=== PATIENT | female | born 1945 | race Caucasian/White ===

== ENCOUNTER 2017-07-11 01:46 | Day surgery (SDC) | payer MEDICARE, OTHER ==
[~2017-07-11 01:46] MED LIST: FEXO180 PO; FLUO20 PO; LEVSOD88 PO; PANT20 PO; PANT40 PO; ZOLP12.5 PO; ZOLP6.25 PO
[2017-07-11] MEDS ORDERED: Prozac40 MG PO (09:42)
[2017-07-11] MEDS ORDERED: Sudogest60 MG PO (09:43)
[2017-07-11] MEDS ORDERED: Hydrocodone-Ap1 EA20 PO (09:44)
[2017-07-11] MEDS ORDERED: SODBIC650 PO (09:44)
[2017-07-11] MEDS ORDERED: PROM25 PO (09:46)
[2017-07-11] MEDS ORDERED: CYCL10 PO (09:46)
[2017-07-11] MEDS ORDERED: ALPR1 PO (09:47)
[2017-07-11] MEDS ORDERED: LEG CRAMP RELIEF PO (09:48)
[2017-07-11] MEDS ORDERED: B-125000 MCG/1 PO (09:51)
[2017-07-11] MEDS ORDERED: Ferosul325 MG PO (09:51)
[2017-07-11] MEDS ORDERED: CALC.25 PO (09:52)
[2017-07-11] MEDS ORDERED: VITAMIN D2000 UNIT PO (10:08)
[2017-07-11] MEDS ORDERED: PROBIOTIC1 EAC2 PO (10:09)
[2017-07-11] MEDS ORDERED: FURO20 PO (10:09)
[2017-07-11] MEDS ORDERED: Calci-Chew500 MG PO (10:10)
[2017-07-11] MEDS ORDERED: Voltaren100 GM TOP (10:12)
[2017-07-11] MEDS ORDERED: Norvasc2.5 MG PO (10:12)
== END 2017-07-11 10:05 | disposition home or self-care (01) ==
LOC: ATC 01:46
DX: D50.9 Iron deficiency anemia, unspecified (principal); I12.9 Hypertensive chronic kidney disease with stage 1 through stage 4 chronic kidney disease, or unspecified chronic kidney disease; N18.4 Chronic kidney disease, stage 4 (severe); D63.1 Anemia in chronic kidney disease; N25.81 Secondary hyperparathyroidism of renal origin; E87.2 Acidosis; M19.90 Unspecified osteoarthritis, unspecified site; Z98.84 Bariatric surgery status; Z79.899 Other long term (current) drug therapy
CPT/HCPCS: 96365; J2916

== ENCOUNTER 2017-07-17 00:37 | Day surgery (SDC) | payer MEDICARE, OTHER ==
[~2017-07-17 00:37] MED LIST changes: +ALPR1 PO; +B-125000 MCG/1 PO; +CALC.25 PO; +CYCL10 PO; +Calci-Chew500 MG PO; +FURO20 PO; +Ferosul325 MG PO; +Hydrocodone-Ap1 EA20 PO; +LEG CRAMP RELIEF PO; +Norvasc2.5 MG PO; +PROBIOTIC1 EAC2 PO; +PROM25 PO; +Prozac40 MG PO; +SODBIC650 PO; +Sudogest60 MG PO; +VITAMIN D2000 UNIT PO; +Voltaren100 GM TOP
== END 2017-07-17 09:44 | disposition home or self-care (01) ==
LOC: ATC 00:37
DX: I12.9 Hypertensive chronic kidney disease with stage 1 through stage 4 chronic kidney disease, or unspecified chronic kidney disease (principal); N18.4 Chronic kidney disease, stage 4 (severe); D63.1 Anemia in chronic kidney disease; Z98.84 Bariatric surgery status; E03.9 Hypothyroidism, unspecified; E87.2 Acidosis; N25.81 Secondary hyperparathyroidism of renal origin
CPT/HCPCS: 96365; J2916

== ENCOUNTER 2017-07-18 00:23 | Day surgery (SDC) | payer MEDICARE, OTHER | END 2017-07-18 11:12 | disposition home or self-care (01) | LOC: ATC 00:23 | DX: I12.9 Hypertensive chronic kidney disease with stage 1 through stage 4 chronic kidney disease, or unspecified chronic kidney disease (principal); N18.4 Chronic kidney disease, stage 4 (severe); D63.1 Anemia in chronic kidney disease; Z98.84 Bariatric surgery status; E03.9 Hypothyroidism, unspecified; D50.9 Iron deficiency anemia, unspecified | CPT/HCPCS: 96365; J2916 ==

== ENCOUNTER 2017-07-19 01:26 | Day surgery (SDC) | payer MEDICARE, OTHER | END 2017-07-19 10:18 | disposition home or self-care (01) | LOC: ATC 01:26 | DX: I12.9 Hypertensive chronic kidney disease with stage 1 through stage 4 chronic kidney disease, or unspecified chronic kidney disease (principal); N18.4 Chronic kidney disease, stage 4 (severe); D63.1 Anemia in chronic kidney disease; Z98.84 Bariatric surgery status; E03.9 Hypothyroidism, unspecified; N25.81 Secondary hyperparathyroidism of renal origin | CPT/HCPCS: 96365; J2916 ==

== ENCOUNTER 2017-07-20 00:19 | Day surgery (SDC) | payer MEDICARE, OTHER | END 2017-07-20 09:24 | disposition home or self-care (01) | LOC: ATC 00:19 | DX: I12.9 Hypertensive chronic kidney disease with stage 1 through stage 4 chronic kidney disease, or unspecified chronic kidney disease (principal); N18.4 Chronic kidney disease, stage 4 (severe); D63.1 Anemia in chronic kidney disease; Z98.84 Bariatric surgery status; E03.9 Hypothyroidism, unspecified; I10 Essential (primary) hypertension; E87.2 Acidosis; N25.81 Secondary hyperparathyroidism of renal origin | CPT/HCPCS: 96365; J2916 ==

== ENCOUNTER → 2017-08-06 | Outpatient (CLI) | payer MEDICARE, OTHER ==
[2017-08-06 16:21] LABS: Hematocrit 33.9 % (33.0-51.0); Hemoglobin 10.4 g/dL (11.5-16.0)
[2017-08-06 16:50] LABS: Albumin, Blood 3.7 g/dL (3.4-5.0); Anion Gap 8 mmol/L (6-16); Blood Urea Nitrogen 43 mg/dL (8-24); Bun/Creatinine Ratio 12.8 (12.0-20.0); CO2, Blood 20 mmol/L (21-32); Calcium, Blood 8.7 mg/dL (8.5-10.1); Chloride, Blood 112 mmol/L (98-108); Creatinine, Blood 3.36 mg/dL (0.40-1.00); Glomerular Filtration Rate 14 (60-); Glucose, Blood 95 mg/dL (70-99); Magnesium, Blood 2.3 mg/dL (1.6-2.4); Phosphorus, Blood 5.2 mg/dL (2.5-4.9); Potassium, Blood 5.3 mmol/L (3.5-5.5); Sodium, Blood 140 mmol/L (136-145)
== END ==
LOC: OLS 14:14 → LAB SHORT 14:14
PROVIDERS: Internal Medicine
DX: N18.4 Chronic kidney disease, stage 4 (severe) (principal); D63.1 Anemia in chronic kidney disease; E61.2 Magnesium deficiency; N25.81 Secondary hyperparathyroidism of renal origin
CPT/HCPCS: 36415; 80069; 83735; 83970; 85014; 85018

== ENCOUNTER → 2018-04-02 | Outpatient (CLI) | payer MEDICARE, OTHER ==
[~2018-04-02] MED LIST changes: +ESCI10 PO
[2018-04-02 14:41] LABS: BASOPHILS ABSOLUTE AUTO 0.06 K/mm3 (0.00-0.23); BASOPHILS PERCENT AUTO 1 % (0-2); EOSINOPHILS ABSOLUTE AUTO 0.11 K/mm3 (0.00-0.68); EOSINOPHILS PERCENT AUTO 2 % (0-6); Hematocrit 34.2 % (33.0-51.0); Hemoglobin 10.7 g/dL (11.5-16.0); IMMATURE GRAN ABSOLUTE AUTO 0.01 K/mm3 (0.00-0.10); IMMATURE GRAN PERCENT AUTO 0 % (0-1); LYMPHOCYTES PERCENT AUTO 30 % (21-46); MONOCYTES ABSOLUTE AUTO 0.47 K/mm3 (0.16-1.47); MONOCYTES PERCENT AUTO 10 % (4-13); Mean Corpuscular HGB 30.1 pg (26.0-34.0); Mean Corpuscular HGB Conc 31.3 g/dL (31.5-36.5); Mean Corpuscular Volume 96 fL (80-100); Mean Platelet Volume 8.9 fL (9.1-12.4); NEUTROPHILS ABSOLUTE AUTO 2.55 K/mm3 (1.96-9.15); NEUTROPHILS PERCENT AUTO 56 % (41-73); Platelet Count 179 K/mm3 (150-400); RDW Coefficient Variation 14.1 % (11.7-14.2); Red Blood Cell Count 3.56 M/mm3 (3.80-5.20)
[2018-04-02 14:55] LABS: Bun/Creatinine Ratio 14.3 (12.0-20.0); Calcium, Blood 8.5 mg/dL (8.5-10.1); Creatinine, Blood 3.36 mg/dL (0.40-1.00); Potassium, Blood 4.6 mmol/L (3.5-5.5); Troponin I 0.109 ng/mL (0.000-0.040)
== END | disposition home or self-care (01) ==
LOC: LAB SHORT 14:37 → LAB EV 14:37
PROVIDERS: Family Medicine
DX: N17.9 Acute kidney failure, unspecified (principal)
CPT/HCPCS: 80048; 83880; 84484; 85025; 85379

== ENCOUNTER 2018-06-07 08:58 | Inpatient (IN) | payer MEDICARE, OTHER ==
[~2018-06-07] VITALS: Ht 162.6 cm; Wt 52.7 kg
[~2018-06-07 08:58] MED LIST changes: -ESCI10 PO
[2018-06-07 09:25] LABS: BASOPHILS ABSOLUTE AUTO 0.08 K/mm3 (0.00-0.23); BASOPHILS PERCENT AUTO 1 % (0-2); EOSINOPHILS ABSOLUTE AUTO 0.09 K/mm3 (0.00-0.68); EOSINOPHILS PERCENT AUTO 1 % (0-6); Hematocrit 39.3 % (33.0-51.0); Hemoglobin 12.1 g/dL (11.5-16.0); IMMATURE GRAN ABSOLUTE AUTO 0.03 K/mm3 (0.00-0.10); IMMATURE GRAN PERCENT AUTO 0 % (0-1); LYMPHOCYTES ABSOLUTE AUTO 2.98 K/mm3 (0.84-5.20); LYMPHOCYTES PERCENT AUTO 33 % (21-46); MONOCYTES ABSOLUTE AUTO 0.58 K/mm3 (0.16-1.47); MONOCYTES PERCENT AUTO 6 % (4-13); Mean Corpuscular HGB 30.1 pg (26.0-34.0); Mean Corpuscular HGB Conc 30.8 g/dL (31.5-36.5); Mean Corpuscular Volume 98 fL (80-100); Mean Platelet Volume 9.8 fL (9.1-12.4); NEUTROPHILS ABSOLUTE AUTO 5.28 K/mm3 (1.96-9.15); NEUTROPHILS PERCENT AUTO 58 % (41-73); Platelet Count 226 K/mm3 (150-400); RDW Coefficient Variation 15.2 % (11.7-14.2); RDW Standard Deviation 53.2 fL (35.1-46.3); Red Blood Cell Count 4.02 M/mm3 (3.80-5.20); White Blood Cell Count 9.04 K/mm3 (4.00-11.30)
[2018-06-07 09:54] LABS: Albumin, Blood 3.4 g/dL (3.4-5.0); Albumin/Globulin Ratio 0.9 (0.8-1.8); Bilirubin, Total 0.8 mg/dL (0.1-1.0); Bun/Creatinine Ratio 16.4 (12.0-20.0); Calcium, Blood 8.8 mg/dL (8.5-10.1); Creatinine, Blood 4.22 mg/dL (0.40-1.00); Globulin, Blood 3.6 g/dL (2.2-4.0); Potassium, Blood 3.7 mmol/L (3.5-5.5); Troponin I 0.268 ng/mL (0.000-0.040)
[2018-06-07] MEDS ORDERED: ESCI10 PO (11:46)
[2018-06-07 11:56] LABS: International Normalized Ratio 1.09; Prothrombin Time Results 11.5 Sec (9.7-11.5)
--- NOTE | 2018-06-07 18:31 | NUR ---
END OF SHIFT SUMMARY; PT IS TO BE NPO AFTER MIDNIGHT TONIGHT PER . HER TROPONINS ARE TRENDING UP. SHE HAS ANXIETY AND IS MEDICATED WITH XANAX ALSO HAS CHRONIC PAIN AND IS MEDICATED WITH NORCO FOR SAME. PER PATIENT SHE HAS LOST 15 POUNDS IN LAST 3 WEEKS. SHE HAD A GASTRIC BYPASS AND A REVISION JUST RECENTLY. SHE REMAINS ON A HEPARIN DRIP AT 13U/KG/HR AND CARDIZEM DRIP AT 10. SHE IS AO X 4 ON ARRIVAL TO PCU. SHE IS A SBA. HER LUNGS ARE CLEAR TO AUSCULTATION. SHE HAS CARDIAC AND NEPHRO CONSULTS. WILL CONTINUE TO MONITOR THIS PATIENT UNTIL REPORT AND HAND OFF TO NOC SHIFT RN.
--- NOTE | 2018-06-07 19:30 | NUR ---
ASSUMED CARE PT RESTING IN ROOM. REPORTS ABD PAIN THAT IS CHRONIC AND MILD NAUSEA. DENIES OTHER PAIN. RESP EVEN UNLABORED ON 3L NC W/ SATS >90%. SKIN PWD. WILL MEDICATE PT FOR NAUSEA PER EMAR. HEPARIN AND CARDIZEM DRIPS RUNNING IN PIV'S IN R ARM. FISTULA NOTED TO LUE. CALL LIGHT IN REACH.
--- NOTE | 2018-06-08 03:06 | NUR ---
HR CONVERT TO SR
[2018-06-08 04:07] LABS: BASOPHILS ABSOLUTE AUTO 0.02 K/mm3 (0.00-0.23); BASOPHILS PERCENT AUTO 0 % (0-2); EOSINOPHILS ABSOLUTE AUTO 0.01 K/mm3 (0.00-0.68); EOSINOPHILS PERCENT AUTO 0 % (0-6); Hematocrit 40.8 % (33.0-51.0); Hemoglobin 12.7 g/dL (11.5-16.0); IMMATURE GRAN ABSOLUTE AUTO 0.04 K/mm3 (0.00-0.10); IMMATURE GRAN PERCENT AUTO 0 % (0-1); LYMPHOCYTES ABSOLUTE AUTO 1.38 K/mm3 (0.84-5.20); LYMPHOCYTES PERCENT AUTO 11 % (21-46); MONOCYTES ABSOLUTE AUTO 0.84 K/mm3 (0.16-1.47); MONOCYTES PERCENT AUTO 7 % (4-13); Mean Corpuscular HGB 29.9 pg (26.0-34.0); Mean Corpuscular HGB Conc 31.1 g/dL (31.5-36.5); Mean Corpuscular Volume 96 fL (80-100); Mean Platelet Volume 10.2 fL (9.1-12.4); NEUTROPHILS ABSOLUTE AUTO 10.07 K/mm3 (1.96-9.15); NEUTROPHILS PERCENT AUTO 81 % (41-73); Platelet Count 204 K/mm3 (150-400); RDW Coefficient Variation 15.3 % (11.7-14.2); RDW Standard Deviation 52.7 fL (35.1-46.3); Red Blood Cell Count 4.25 M/mm3 (3.80-5.20); White Blood Cell Count 12.36 K/mm3 (4.00-11.30)
[2018-06-08 04:31] LABS: Albumin, Blood 3.3 g/dL (3.4-5.0); Anion Gap 16 mmol/L (6-16); Blood Urea Nitrogen 77 mg/dL (8-24); Bun/Creatinine Ratio 15.6 (12.0-20.0); CO2, Blood 17 mmol/L (21-32); Calcium, Blood 8.4 mg/dL (8.5-10.1); Chloride, Blood 103 mmol/L (98-108); Creatinine, Blood 4.93 mg/dL (0.40-1.00); Glomerular Filtration Rate 9 (60-); Glucose, Blood 141 mg/dL (70-99); Phosphorus, Blood 7.8 mg/dL (2.5-4.9); Potassium, Blood 4.7 mmol/L (3.5-5.5); Sodium, Blood 136 mmol/L (136-145)
--- NOTE | 2018-06-08 05:30 | NUR ---
SHIFT SUMMARY PT SLEEPING IN ROOM COMFORTABLY. PT HAD SOME FLUCTUATIONS IN BLOOD PRESSURE OVERNIGHT. SLIGHLY LOW BP'S WERE NOTED TWICE. PT WAS MEDICATED FOR ABD PAIN. AR APROX 0300 PT HR CONVERTED FROM AFIB TO NSR. PT HR STILL TRENDING BETWEEN 80'S-90'S CARDIZEM DRIP CONTINUED AT 5ML/HR AT THIS TIME. RESP EVEN UNLABORED ON 2L O2 VIA NC, W/ SATS >90%. PT HAS POOR CIRCULATION SO IT IS HARD TO OBTAIN QUALITY SPO2 READING. DENIED CP. PT WAS MEDICATED FOR NAUSEA TWICE T/O NIGHT. NPO AFTER MIDNIGHT. HEPARIN GTT CONTINUES IN PIV AT 17ML/HR. CALL LIGHT IS IN REACH.
[2018-06-08 11:40] LABS: PCO2 Arterial 29.1 mmHg (35-45); pH Blood Arterial 6.93 (7.35-7.45)
[2018-06-08 12:41] LABS: BASOPHILS ABSOLUTE AUTO 0.02 K/mm3 (0.00-0.23); BASOPHILS PERCENT AUTO 0 % (0-2); EOSINOPHILS ABSOLUTE AUTO 0.01 K/mm3 (0.00-0.68); EOSINOPHILS PERCENT AUTO 0 % (0-6); Hematocrit 39.9 % (33.0-51.0); Hemoglobin 11.5 g/dL (11.5-16.0); IMMATURE GRAN ABSOLUTE AUTO 0.06 K/mm3 (0.00-0.10); IMMATURE GRAN PERCENT AUTO 1 % (0-1); LYMPHOCYTES ABSOLUTE AUTO 1.33 K/mm3 (0.84-5.20); LYMPHOCYTES PERCENT AUTO 12 % (21-46); MONOCYTES ABSOLUTE AUTO 0.41 K/mm3 (0.16-1.47); MONOCYTES PERCENT AUTO 4 % (4-13); Mean Corpuscular HGB 29.9 pg (26.0-34.0); Mean Corpuscular HGB Conc 28.8 g/dL (31.5-36.5); Mean Platelet Volume 10.5 fL (9.1-12.4); NEUTROPHILS PERCENT AUTO 84 % (41-73); NRBC ABSOLUTE 0.04 K/mm3 (0.00-0.02); NRBC Auto 0.3 /100 WBC (0.0-0.2); Platelet Count 201 K/mm3 (150-400); RDW Coefficient Variation 15.4 % (11.7-14.2); Red Blood Cell Count 3.85 M/mm3 (3.80-5.20); White Blood Cell Count 11.43 K/mm3 (4.00-11.30)
[2018-06-08 12:46] LABS: Mean Corpuscular Volume 104 fL (80-100)
--- NOTE | 2018-06-08 13:00 | NUR ---
Patient arrived to ICU 8 from PCU12 post rapid response. She was hypoxic and hypotensive. She arrived via NRM at 15L O2 and sats low 80%. and systolic 70's and MAP <60. She was goldman and dusky. Family notified of transfer and son stated DNR/DNI to paliative care and they are there way in.. Dr Fu was notified and she was also communicating with Dr Mcknight. She had 2, 20ga IV's in right arm and old fistula in left. She was finishing 500 ml bolus from PCU. She was very lethargis and only answered in yes and no answers.
[2018-06-08 13:39] LABS: Albumin, Blood 2.9 g/dL (3.4-5.0); Albumin/Globulin Ratio 0.8 (0.8-1.8); Bilirubin, Total 1.1 mg/dL (0.1-1.0); Bun/Creatinine Ratio 16.1 (12.0-20.0); Calcium, Blood 7.8 mg/dL (8.5-10.1); Creatinine, Blood 5.08 mg/dL (0.40-1.00); Globulin, Blood 3.7 g/dL (2.2-4.0); Potassium, Blood 4.4 mmol/L (3.5-5.5); Total Protein, Blood 6.6 g/dL (6.4-8.2)
--- NOTE | 2018-06-08 14:00 | NUR ---
Dr redmond wanted 1 amp Bicarb and 12.5mg Fentanly and was sert up for Dialysis cath with nenous port for pressors. We started levophed at 2 mcg and quickly taken to 4mcg and systolic 70-80's. Line was successful and we turned Levophed to 10mcg. and systolic 90's, Dialysis was called and will start in 30 minutes. Family present in room and re-stated no intubation or life support machines.
[2018-06-08 14:42] LABS: Base Excess Venous -22.8 mmol/L; Bicarbonate Venous 8.8 mmol/L (24.0-30.0); PCO2 Venous 29.9 mmHg (38-42); PO2 Venous 53.6 mmHg (38-42); pH Blood Venous 7.03 (7.34-7.37)
[2018-06-08 14:44] LABS: BASOPHILS ABSOLUTE AUTO 0.01 K/mm3 (0.00-0.23); BASOPHILS PERCENT AUTO 0 % (0-2); EOSINOPHILS ABSOLUTE AUTO 0.01 K/mm3 (0.00-0.68); EOSINOPHILS PERCENT AUTO 0 % (0-6); Hemoglobin 11.2 g/dL (11.5-16.0); IMMATURE GRAN ABSOLUTE AUTO 0.04 K/mm3 (0.00-0.10); IMMATURE GRAN PERCENT AUTO 0 % (0-1); LYMPHOCYTES ABSOLUTE AUTO 1.01 K/mm3 (0.84-5.20); LYMPHOCYTES PERCENT AUTO 11 % (21-46); MONOCYTES ABSOLUTE AUTO 0.85 K/mm3 (0.16-1.47); MONOCYTES PERCENT AUTO 9 % (4-13); Mean Corpuscular HGB 29.7 pg (26.0-34.0); Mean Corpuscular HGB Conc 29.5 g/dL (31.5-36.5); Mean Platelet Volume 10.6 fL (9.1-12.4); NEUTROPHILS ABSOLUTE AUTO 7.65 K/mm3 (1.96-9.15); NEUTROPHILS PERCENT AUTO 80 % (41-73); NRBC ABSOLUTE 0.03 K/mm3 (0.00-0.02); NRBC Auto 0.3 /100 WBC (0.0-0.2); Platelet Count 202 K/mm3 (150-400); RDW Coefficient Variation 15.5 % (11.7-14.2); RDW Standard Deviation 56.1 fL (35.1-46.3); Red Blood Cell Count 3.77 M/mm3 (3.80-5.20); White Blood Cell Count 9.57 K/mm3 (4.00-11.30)
[2018-06-08 15:03] LABS: Mean Corpuscular Volume 101 fL (80-100)
[2018-06-08 15:06] LABS: Bun/Creatinine Ratio 16.1 (12.0-20.0); Calcium, Blood 7.3 mg/dL (8.5-10.1); Creatinine, Blood 5.03 mg/dL (0.40-1.00); Potassium, Blood 3.7 mmol/L (3.5-5.5)
--- NOTE | 2018-06-08 16:00 | NUR ---
Dialysis has been running and have been checking on patient and she staes feeling better. She has been on BIPAP 12/6 100% since 1300 and has been sating inthe mid 90%;s and tolerating well. He BP with dialysis has been 90/100 systolic. She is doing slightly better and is answering in multiple word sentences , but still alittle goldman Levophed has been titratyed up to 20mcg with systolic 100's.
--- NOTE | 2018-06-08 17:27 | NUR ---
Heparin gtt restarted and will start Zosyn now that dialysis is done, just reduced BIPAP to FiO2 80% and still sats mid 90%'s, Levophed continues at 20mcg and will try to titrate down.
--- NOTE | 2018-06-08 18:55 | NUR ---
ASSUMING CARE OF PT AT THIS TIME. PT REPORT RECEIVED AT BEDSIDE WITH OFFGOING NURSE, CHRISTINE BLAND. PT LAYING IN BED, SLEEPING, ON BIPAP UPON ENTERING THE ROOM. VS STABLE - SEE VS FS. PT DOES NOT APPEAR TO BE IN DISTRESS AT THIS TIME. WILL REVIEW PLAN OF CARE.
--- NOTE | 2018-06-08 19:00 | NUR ---
ASSESSMENT PT CALM, QUIET, COOPERATIVE, RESPONDS TO VERBAL STIMULI, SPONT OPENS EYES, SLOW TO RESPOND, TALKS AND ANSWERS QUESTIONS APPROPRIATELY, A&O X4, LETHARGIC, QUICKLY FALLS BACK ASLEEP WITH DECREASED STIMULI. PER REPORT - OCC ANXIETY NOTED. SENSATION INTACT. PT DENIES N/T. PT YUAN. SLIGHT WEAKNESS NOTED. PT ASSISTS WITH TURNS. PT C/O ABD PAIN - MEDICATED WITH FENT PER PHYSICIAN'S ORDER / UTILIZED NONPHARM METHODS. LUNGS COARSE, DIMINISHED LOWER LOBES. SHALLOW BREAHTING. BIPAP 10/6, FIO2 70%. OXY SAT >90%. RR 20'S. DENIES SOB AT REST. DYSPNEA WITH EXERTION. OCC NONPRODUCTIVE COUGH. AFEBRILE. ST. HR 100'S. BP STABLE - SEE VS FS. LEVOPHED 20 MCG/MIN. LEVOPHED DRIP - WILL TITRATE TO EFFECT. STRONG RADIAL PULSES. FAINT TIBIAL AND PEDAL PULSES. COOL, PALE SKIN. APPLIED WARM BLANKETS. HYPOACTIVE BT X4 QUADRANTS. MILD DIST, (PT STATES ABD DIST IS NORMAL), TENDER WITH AND WITHOUT PALPATION (ONSET POST GASTRIC BYPASS), SOFT. PT C/O NAUSEA, NO VOMITING. ZOFRAN ADMINSITERED. PT DENIES N/V POST ZOFRAN. NO BM. DIALYSIS PT. F/C IN PLACE: MINIMAL AMOUNTS OF DARK, YELLOW URINE NOTED. PER REPORT - LEFT ARM FISTULA IS NONFUCTIONING. PER REPORT - HD CATHETER INSERTED THIS AM AT R FEMORAL SITE. PIV X2. SODIUM BICARBONATE AT 100 ML/HR. ZOSYN INFUSING. HEPARIN DRIP AT 14 UNITS/KG/HR AT A DOSING WEIGHT 50 KG (15 ML/HR).
[2018-06-08 20:25] LABS: Base Excess Venous -11.7 mmol/L; Bicarbonate Venous 14.8 mmol/L (24.0-30.0); PO2 Venous 27.4 mmHg (38-42)
[2018-06-08 20:26] LABS: PCO2 Venous 40.1 mmHg (38-42); pH Blood Venous 7.21 (7.34-7.37)
--- NOTE | 2018-06-08 20:39 | NUR ---
HEPARIN DRIP INFORNED BENITEZ, PHARMACIST OF APTT 44.4. BENITEZ PLANNING TO ADJUST HEPARIN DRIP. WAITING FOR NEW ORDER AT THIS TIME.
--- NOTE | 2018-06-08 21:05 | NUR ---
DR. CONCEPCION INFORMED DR. CONCEPCION OF LAB VALUES. DR. CONCEPCION D/C SODIUM BICARB DRIP AND ORDERED LACTIC ACID AT 2300. D/C SODIUM BICARB DRIP AT THIS TIME. DR CONCEPCION INSTRUCTED TO CONTACT HER IF LACTIC ACID AT 2300 INCREASES.
[2018-06-08 23:09] LABS: Base Excess Venous -12.4 mmol/L; Bicarbonate Venous 14.3 mmol/L (24.0-30.0); PCO2 Venous 37.6 mmHg (38-42); PO2 Venous 23.1 mmHg (38-42); pH Blood Venous 7.22 (7.34-7.37)
[2018-06-08 23:36] LABS: Albumin, Blood 3.7 g/dL (3.4-5.0); Albumin/Globulin Ratio 1.4 (0.8-1.8); Bilirubin, Direct 0.7 mg/dL (0.0-0.3); Bilirubin, Indirect 0.4 mg/dL (0.1-0.7); Bilirubin, Total 1.1 mg/dL (0.1-1.0); Globulin, Blood 2.6 g/dL (2.2-4.0); Total Protein, Blood 6.3 g/dL (6.4-8.2)
--- NOTE | 2018-06-08 23:49 | NUR ---
DR. CONCEPCION INFORMED DR. CONCEPCION OF LACTIC ACID AND VBG RESULTS. NO NEW ORDERS AT THIS TIME. DR. PAULA INSTRUCTED TO UTILIZE BIPAP PRN. PT ON 4L NC. OXY SAT 90% AND GREATER.
--- NOTE | 2018-06-09 01:01 | NUR ---
DR. FIERRO INFORMED DR. FIERRO OF TROPONIN 40.6. NO NEW ORDERS AT THIS TIME. DR. FIERRO INSTRUCTED TO CONT HEPARIN DRIP AT THIS TIME.
--- NOTE | 2018-06-09 03:05 | NUR ---
DR. JAMEY CONCEPCION IN TO SEE PT AT THIS TIME. PT RESPONDING TO VERBAL STIMULI, A&O TO SELF, INCREASED CONFUSION T/O SHIFT, DECREASED LOC NOTED T/O SHIFT, PULLING AT LINES/CORDS/TUBES, ATTEMPTING TO GET OOB (BED ALARM ON, SIDE RAILS UP, TAB ALARM ON), SLOW TO RESPOND. L PUPIL 5 MM, R PUPIL 3 MM, BRISK, NO TRACKING WITH EYES. PT YUAN. WEAKESS NOTED. PT RESTLESS IN BED. PT TURNING SELF IN BED. S/SX OF PAIN/DISCOFMORT NOTED T/S SHIFT - CONT TO ASSESS FOR PAIN/DISCOMFORT AND MEDICATED WITH PAIN MEDS PER PHYSICIAN'S ORDER / UTILIZED NONPHARM METHODS. PT CONT TO C/O ABD PAIN/DISCOMFORT. DR. CONCEPCION AT BEDSIDE AT THIS TIME. DR. CONCEPCION ORDERED MORPHINE FOR PAIN/DISCOMFORT. LUNGS COARSE, DIMINISHED LOWER LOBES. PT CURRENTLY ON BIPAP 10/6, FIO2 80%. OXY SAT >90%. RR 30'S. PT CONT TO PULL BIPAP OFF T/O SHIFT. SOB NOTED AT REST AT THIS TIME. DYSPNEA WITH EXERTION. OCC NONPRDOUCTIVE COUGH. AFEBRILE. NSR. HR 90'S. HYPOTESIVE (SEE VS FS). LEVOPHED 20 MCG/MIN. DR. CONCEPCION ORDERED VASOPRESSIN AND EPI DRIP FOR HYPOTENSION. WAITING FOR MEDICATION FROM PHARMACY AT THIS TIME. DR. CONCEPCION ALSO ORDERED STAT EKG. EKG COMPLETED. DR CONCEPCION REVIEWED EKG - NO NEW ORDERS AT THIS TIME EXCEPT TO TITRATE VASOPRESSORS TO EFFECT. HEPARIN REMAINS 15 UNITS/KG/HR AT A DOSING WEIGHT 50 KG (15 ML/HR). STRONG RADIAL PULSES. FAINT TIBIAL AND PEDAL PULSES. SKIN COOL, PALE. HYPOACTIVE BT X4 QUADRANTS. ABD MILD DIST, TENDER WITH AND WITHOUT PALPATION, SOFT. PT C/O CHRONIC NAUSEA, NO VOMITING. PT STATES NAUSEA WOULD RESOLVE AFTER ADMINISTERING ZOFRAN. F/C: DARK YELLOW URINE. THIS RN CALLED JAMSIN (PT'S SON) AT THIS TIME D/T CHANGE IN PT'S CONDITION. WAITING ON FAMILY AT THIS TIME.
[2018-06-09 03:33] LABS: Base Excess Venous -23.2 mmol/L; Bicarbonate Venous 8.1 mmol/L (24.0-30.0); PCO2 Venous 42.2 mmHg (38-42); PO2 Venous 44.8 mmHg (38-42); pH Blood Venous 6.94 (7.34-7.37)
--- NOTE | 2018-06-09 03:40 | NUR ---
DR. JAMEY CONCEPCION IN ICU AT THIS TIME. INFORMED DR. CONCEPCION OF VBG PH 6.94. PT ON BIPAP 01/19, FIO2 80%. OXY SAT 90% AND GREATER. RR 20'S. NO NEW ORDERS AT THIS TIME.
[2018-06-09 04:00] LABS: BASOPHILS PERCENT AUTO 0 % (0-2); EOSINOPHILS PERCENT AUTO 0 % (0-6); Hematocrit 35.5 % (33.0-51.0); Hemoglobin 10.2 g/dL (11.5-16.0); IMMATURE GRAN ABSOLUTE AUTO 0.06 K/mm3 (0.00-0.10); IMMATURE GRAN PERCENT AUTO 1 % (0-1); LYMPHOCYTES ABSOLUTE AUTO 0.64 K/mm3 (0.84-5.20); LYMPHOCYTES PERCENT AUTO 10 % (21-46); MONOCYTES ABSOLUTE AUTO 0.45 K/mm3 (0.16-1.47); MONOCYTES PERCENT AUTO 7 % (4-13); Mean Corpuscular HGB 29.4 pg (26.0-34.0); Mean Corpuscular HGB Conc 28.7 g/dL (31.5-36.5); Mean Corpuscular Volume 102 fL (80-100); Mean Platelet Volume 11.3 fL (9.1-12.4); NEUTROPHILS ABSOLUTE AUTO 4.98 K/mm3 (1.96-9.15); NEUTROPHILS PERCENT AUTO 81 % (41-73); NRBC Auto 1.6 /100 WBC (0.0-0.2); Platelet Count 131 K/mm3 (150-400); RDW Coefficient Variation 15.7 % (11.7-14.2); RDW Standard Deviation 56.8 fL (35.1-46.3); Red Blood Cell Count 3.47 M/mm3 (3.80-5.20); White Blood Cell Count 6.13 K/mm3 (4.00-11.30)
--- NOTE | 2018-06-09 04:20 | NUR ---
COMFORT CARE PT'S FAMILY AT BEDSIDE. PT'S FAMILY DECIDED TO CHANGE PT TO COMFORT CARE STATUS. INFORMED DR. CONCEPCION OF FAMILY'S WISHES. DR. CONCEPCION AT BESIDE. DR. PAULA ORDERED COMFORT CARE MEASURES AT THIS TIME. WAITING FOR VERIFICATION OF MEDICATIONS FROM PHARMACY AT THIS TIME.
--- NOTE | 2018-06-09 04:30 | NUR ---
COMFORT CARE MORPHINE ADMINSITERED PER PHYSICIAN'S ORDER / UTILIZED NONPHARM METHODS PER PHYSICIAN'S ORDER FOR PAIN/DISCOMFORT. PT'S FAMILY AT BEDSIDE. PER FAMILY'S REQUEST, BIPAP REMOVED AND LEVOPHED, VASOPRESSIN, AND HEPARIN STOPPED AT THIS TIME.
--- NOTE | 2018-06-09 04:40 | NUR ---
TIME OF TIME OF AT 0440. PT IN [place]. PT'S FAMILY REQUESTED [facility] HOME. FINAL DISCHARGE STARTED BY EDWINA GREEN. THIS RN UPDATED PHYSICIAN'S OF PT'S TIME OF . WAITING FOR PHONE CALL BACK FROM [employer] AT THIS TIME. JASMIN (PT'S SON) BROUGHT HOME PT'S BELONGINGS YESTERDAY AM EXCEPT TWO GOLD RINGS ON PT'S FINGERS. UNABLE TO REMOVE GOLD RINGS AT THIS TIME.
== END 2018-06-09 07:57 ==
LOC: ER 08:58 → ERHOLD 10:37 → PCU 15:52 → ICUE 16:00
PROVIDERS: Emergency Medicine; Hospitalist; Internal Medicine Pulmonary Disease; ADMIT Internal Medicine
PROC: 05H533Z Insertion of Infusion Device into Right Subclavian Vein, Percutaneous Approach (ICD-10-PCS; principal; 2018-06-07)
PROC: 5A1935Z Respiratory Ventilation, Less than 24 Consecutive Hours (ICD-10-PCS; 2018-06-07)
PROC: B546ZZA Ultrasonography of Right Subclavian Vein, Guidance (ICD-10-PCS; 2018-06-07)
PROC: 5A09357 Assistance with Respiratory Ventilation, Less than 24 Consecutive Hours, Continuous Positive Airway Pressure (ICD-10-PCS; 2018-06-07)
PROC: 02HV33Z Insertion of Infusion Device into Superior Vena Cava, Percutaneous Approach (ICD-10-PCS; 2018-06-07)
DX: I48.0 Paroxysmal atrial fibrillation (principal); I21.4 Non-ST elevation (NSTEMI) myocardial infarction; J96.01 Acute respiratory failure with hypoxia; I50.31 Acute diastolic (congestive) heart failure; N18.6 End stage renal disease; I13.2 Hypertensive heart and chronic kidney disease with heart failure and with stage 5 chronic kidney disease, or end stage renal disease; N17.9 Acute kidney failure, unspecified; R64 Cachexia; E87.2 Acidosis; Z68.1 Body mass index [BMI] 19.9 or less, adult; Z51.5 Encounter for palliative care; Z99.2 Dependence on renal dialysis; R57.0 Cardiogenic shock; I25.10 Atherosclerotic heart disease of native coronary artery without angina pectoris; E78.5 Hyperlipidemia, unspecified; E03.9 Hypothyroidism, unspecified; I08.0 Rheumatic disorders of both mitral and aortic valves; I27.20 Pulmonary hypertension, unspecified; D63.1 Anemia in chronic kidney disease; Z98.84 Bariatric surgery status; Z66 Do not resuscitate
CPT/HCPCS: 36415; 36556; 36600; 51702; 70450; 71045; 74176; 80048; 80053; 80069; 80076; 82150; 82330; 82550; 82803; 83605; 83690; 83880; 84443; 84484; 85025; 85610; 85730; 87040; 93005; 93010; 94660; 96361; 96365; 96366; 96375; 99285-25; C1752; C9113; J1644; J2405; J2543; J3010; J7030; J7040; J7060; J7070; P9046